=== PATIENT | female | born 1945 | race Caucasian/White ===

== ENCOUNTER 2016-08-08 13:45 | Emergency (ER) | payer OTHER, MEDICARE ==
[~2016-08-08] VITALS: Ht 157.5 cm; Wt 77.6 kg
[~2016-08-08 13:45] MED LIST: ACTIGALL 300MG300 MG PO; CRESTOR20 M2 PO; FLOVENT DI250 MCG/Ac PO; HUMIRA (4040 MG/0.8; LEVOTHYROXINE100 MC1 PO; MACROBID100 MG PO; MESALAMINE4 GM/60 ML; METOPROLOL TART25 M1 PO; MYRBETRIQ25 M1 PO; PENTASA500 M1 PO; PREDNISONE10 MG PO; PREDNISONE5 MG PO; TAMIFLU 75MG75 MG PO; ZOFRAN4 M1 PO
[2016-08-08] MEDS ORDERED: HUMIRA PEN40 MG/0.8 SC (14:55)
[2016-08-08] MEDS ORDERED: ASPIRIN81 M4 PO (14:57)
[2016-08-08] MEDS ORDERED: URSODIOL300 M1 PO (14:58)
[2016-08-08] MEDS ORDERED: BUDESONIDE EC3 MG PO (14:59)
--- NOTE | 2016-08-08 15:00 | RADIOLOGY REPORT ---
EXAMINATION: XR CHEST CLINICAL INFORMATION: Cough for 3 days with fever COMPARISON: Multiple priors, most recently chest CT from 02/26/2015 TECHNIQUE: 2 views of the chest were obtained. FINDINGS: Median sternotomy wires appear intact. Low lung volumes. Bronchial wall thickening noted. No dense consolidation. No edema or effusion. No pneumothorax. The cardiomediastinal silhouette is within normal limits. IMPRESSION: No dense consolidation. Bronchial wall thickening can be seen with a small airways process such as asthma or atypical/viral infection.
[2016-08-08] MEDS ORDERED: PREDNISONE5 M1 PO (15:01)
--- NOTE | 2016-08-08 15:41 | ED INFLUENZA/URI COMPLAINT ---
History of Present Illness General Chief Complaint: General Adult Stated Complaint: SIB PCP FOR EVAL, ?PNA Source: patient Exam Limitations: no limitations Vital Signs & Intake/Output Vital Signs & Intake/Output Vital Signs Date Time Temp Pulse Resp B/P B/P Pulse O2 O2 Flow FiO2 Mean Ox Delivery Rate 08/08 1637 99.2 100 20 136/61 95 Room Air 08/08 1609 94 08/08 1603 Room Air Room Air 08/08 1348 99.7 105 16 118/75 96 Room Air Allergies Coded Allergies: NO KNOWN ALLERGIES (02/23/15) Reconcile Medications Adalimumab (Humira Pen) 40 MG/0.8 ML PEN.IJ.KIT 1 SYR SC Q2W UNKNOWN ( Reported) Albuterol Sulfate (Proventil Hfa) 90 MCG HFA.AER.AD 2 PUF INH Q4 SOB Albuterol Sulfate (Proventil Hfa) 90 MCG HFA.AER.AD 2 PUF INH Q4 SOB Aspirin (Aspirin*) 81 MG TAB.CHEW 1 TAB PO DAILY HEART (Reported) Budesonide (Budesonide EC) 3 MG CAPDR...ER 1 CAP PO BID UNKNOWN (Reported) Doxycycline Hyclate 100 MG TABLET 1 TAB PO BID BRONCHITIS Doxycycline Hyclate 100 MG TABLET 1 TAB PO BID bronchitis Levothyroxine Sodium 100 MCG TABLET 1 TAB PO DAILY AC THYROID (Reported) Mesalamine (Pentasa) 500 MG CAPSULE.ER 3 CAP PO BID CROHNS (Reported) Mesalamine (Pentasa) 500 MG CAPSULE.ER 2 CAP PO QPM CHRONS (Reported) Metoprolol Tartrate 25 MG TABLET 1 TAB PO BID HEART (Reported) Mirabegron (Myrbetriq) 25 MG TAB.ER.24H 1 TAB PO DAILY BLADDER (Reported) Prednisone 5 MG TABLET 1 TAB PO DAILY RA (Reported) Prednisone (Deltasone) 20 MG TABLET 1 TAB PO BID BRONCHITIS Prednisone (Deltasone) 20 MG TABLET 1 TAB PO BID ASTHMA Rosuvastatin Calcium (Crestor) 20 MG TABLET 1 TAB PO DAILY CHOLESTEROL ( Reported) Ursodiol 300 MG CAPSULE 1 CAP PO 4 TIMES/DAY UNKNOWN (Reported) Triage Note: 70 Y/O FEMALE SENT FROM [facility] FOR EVAL OF COUGH AND FEVER X 3 DAYS; C/O COUGH WITH "DARK YELLOW" PHLEGM; REPORTS "FEELING CRUMMY" X 3 DAYS. STATES TEMP WAS 102 IN MD OFFICE, 99.7 IN TRIAGE. C/O FEELING TIRED AND WEAK. SAT 96% RA. CONGESTED COUGH NOTED. Triage Nurses Notes Reviewed? yes Onset: Abrupt Duration: day(s):, constant, continues in ED Timing: recent history Severity: moderate, severe No Modifying Factors: none HPI: 70-year-old female comes into emergency room with complaints of cough, runny nose, mucus production, nasal congestion, scratchy sore throat. Some wheezing and shortness of breath. Symptoms of a going on for the past few days. Subjective chills with a low-grade temperature. Denies any chest pain. Denies any vomiting. Nothing seems to make the symptoms better or worse. Denies any other associated symptoms. (MATTHEW TYLER) Past History Travel History Traveled to [place] past 21 day No Medical History Any Pertinent Medical History? see below for history Neurological: NONE EENT: NONE Cardiovascular: CAD, hypertension, hyperlipidemia Respiratory: NONE Gastrointestinal: Crohn's disease Hepatic: primary biliary cirrhosis Renal: NONE Musculoskeletal: osteoporosis, rheumatoid arthritis Psychiatric: NONE Endocrine: Eveline's thyroiditis, hypothyroidism Cancer(s): NONE MORNING SHOW HOST/Reproductive: NONE History of MRSA: No History of VRE: No History of CDIFF: No Pneumonia Vaccine: 03/27/11 Influenza Vaccine: 12/25/14 Surgical History Surgical History: CABG, , sinus surgery. right shoulder repair. Psychosocial History Who do you live with Spouse Services at Home None What is your primary language Uzbek Tobacco Use: Never used Family History Family History, If Any: MOTHER (Hx colon Ca x 2 (50's & 60's).). , Age 79; Cause: Dementia. FATHER, , Age 88; Cause: ASHD (arteriosclerotic heart disease). SON (? PBC.). Relation not specified for: colon cancer Hx Contributory? No (MATTHEW TYLER) Review of Systems Review of Systems Constitutional: Reports: see HPI. EENTM: Reports: see HPI. Respiratory: Reports: see HPI. Cardiovascular: Reports: no symptoms. GI: Reports: no symptoms. Genitourinary: Reports: no symptoms. Musculoskeletal: Reports: no symptoms. Skin: Reports: no symptoms. Neurological/Psychological: Reports: no symptoms. Hematologic/Endocrine: Reports: no symptoms. Immunologic/Allergic: Reports: no symptoms. All Other Systems: Reviewed and Negative (MATTHEW TYLER) Physical Exam Physical Exam General Appearance: well developed/nourished, alert, awake Head: atraumatic, normal appearance Eyes: Bilateral: normal appearance, EOMI. Ears, Nose, Throat: moist mucous membrane, hearing grossly normal, mild erythema posterior pharynx, Neck: normal inspection Respiratory: decreased breath sounds, rhonchi, wheezing Cardiovascular: regular rate/rhythm Back: normal inspection Extremities: normal range of motion, no edema Neurologic/Psych: awake, alert, oriented x 3, normal gait Skin: intact, normal color Core Measures Severe Sepsis Present: No Septic Shock Present: No (MATTHEW TYLER) Progress Differential Diagnosis: influenza, meningitis, neutropenia, otitis, pneumonia, pharyngitis, sinusitis, bronchitis, Plan of Care: Current Medications Sig/Celestina Start time Last Medication Dose Stop Time Status Admin Albuterol Sulfate 3 ML ONCE ONE 08/08 1545 AC (Proventil) 08/08 1546 Ipratropium [place] 2.5 ML ONCE ONE 08/08 1545 AC (Atrovent) 08/08 1546 Prednisone 40 MG ONCE ONE 08/08 1545 UNVr 08/08 1546 Diagnostic Imaging: Viewed by Me: Radiology Read. Discussed w/RAD: Radiology Read. Radiology Impression: SERVICE DATE: 08/08/16 EXAM TYPE: RAD - XRY-CHEST XRAY, PA AND LATERAL EXAMINATION: XR CHEST CLINICAL INFORMATION: Cough for 3 days with fever COMPARISON: Multiple priors, most recently chest CT from 2014 TECHNIQUE: 2 views of the chest were obtained. FINDINGS: Median sternotomy wires appear intact. Low lung volumes. Bronchial wall thickening noted. No dense consolidation. No edema or effusion. No pneumothorax. The cardiomediastinal silhouette is within normal limits. IMPRESSION: No dense consolidation. Bronchial wall thickening can be seen with a small airways process such as asthma or atypical/viral infection. DICTATED BY: SASHA SEARS,BOWEN DATE/TIME DICTATED:08/08/161453 ENGINEERING DIRECTOR:RAZA DATE/TIME TRANSCRIBED:1453 Initial ED EKG: none Comments: 08/08/2016 5:40:46 PM Patient clinically looks well. Nontoxic-appearing. Symptoms most consistent with bronchitis. Patient seen by Dr. Garza. Return if any other concerns worsening symptoms. Understands and agrees with plan of care. Patient treated symptomatically. Symptoms significantly improved after breathing treatment. (MATTHEW TYLER) Departure Departure Disposition: HOME OR SELF CARE Condition: Stable Clinical Impression Primary Impression: Bronchitis Referrals: HARIS SEARS,ARAMIS Pennington (PCP/Family) Additional Instructions: Take prednisone, doxycycline, and albuterol as prescribed. Follow-up with your primary care doctor this week. Take medications as prescribed. Return if any other concerns worsening symptoms. Please go over all results of today's visit with your primary care doctor. Contact your primary care doctor to let them know you were here in the emergency room. There may be nonspecific findings which may not be related to your visit today here in the emergency room but may require further evaluation and chronic monitoring by your primary care doctor. If you had a laceration today the chance of foreign body always remains. You should follow-up with your primary care doctor for recheck in 3-5 days for a wound check. If you had an x-ray done there is a chance that a fracture could have been missed on initial read and you should follow-up with your primary care doctor for repeat x-rays if symptoms persist. If your blood pressure was elevated here in the emergency room please have rechecked by her primary care doctor within the next 48 hours by your primary care doctor. If you were prescribed a narcotic here in the emergency room or any type of controlled substances you're not allowed to drive while taking this medication or operate any type of heavy machinery. Narcotics can make you feel lightheaded dizziness nausea and can cause constipation. You may need to warehouse order picker a stool softener. Thank you for choosing [facility] emergency room. Please return to the emergency room immediately if you have any other concerns worsening of symptoms. Departure Forms: Customer Survey General Discharge Information Prescriptions: Current Visit Scripts Prednisone (Deltasone) 1 TAB PO BID #8 MG Albuterol Sulfate (Proventil Hfa) 2 PUF INH Q4 #1 INHAL Doxycycline Hyclate 1 TAB PO BID #20 TAB Doxycycline Hyclate 1 TAB PO BID #20 TAB Prednisone (Deltasone) 1 TAB PO BID #8 MG Albuterol Sulfate (Proventil Hfa) 2 PUF INH Q4 #1 INHAL (MATTHEW TYLER) PA/LIVE GAMES DEALER Co-Sign Statement Statement: ED Attending supervision documentation- [x] I saw and evaluated the patient. I have also reviewed all the pertinent lab results and diagnostic results. I agree with the findings and the plan of care as documented in the PA's/LIVE GAMES DEALER's documentation. [] I have reviewed the ED Record and agree with the PA's/LIVE GAMES DEALER's documentation. [] Additions or exceptions (if any) to the PAs/LIVE G[employer] DEALER's note and plan are summarized below: [] (LORENZO GARZA DO)
[2016-08-08 16:37] VITALS: BP 136/61
[2016-08-08] MEDS ORDERED: DOXYCYCLINE HY100 M4 PO ×2 (16:44→17:07)
[2016-08-08] MEDS ORDERED: PROVENTIL HFA6.7 GM INH ×2 (16:44→17:07)
[2016-08-08] MEDS ORDERED: DELTASONE20 MG PO ×2 (16:44→17:07)
== END 2016-08-08 17:29 ==
LOC: ERH 13:45
DX: J40 Bronchitis, not specified as acute or chronic (principal)
CPT/HCPCS: 1263